=== PATIENT | male | born 1995 | race Two or more races ===

== ENCOUNTER 2016-06-26 13:19 | Emergency (ER) | payer SELFPAY ==
[~2016-06-26] VITALS: Ht 167.6 cm; Wt 75.0 kg
[2016-06-26 13:41] VITALS: BP 133/82
== END 2016-06-26 16:35 | disposition home or self-care (01) ==
LOC: ER 14:37
DX: L29.9 Pruritus, unspecified (principal)
CPT/HCPCS: 99283